=== PATIENT | male | born 1980 | race Caucasian/White ===

== ENCOUNTER 2020-08-17 17:52 | Emergency (ER) | payer OTHER, SELFPAY ==
--- NOTE | ~2020-08-17 | CT_ITS ---
EXAMINATION: CT abdomen pelvis wo con EXAM DATE: 08/17/2020 19:18 INDICATION: Right flank pain. TECHNIQUE: Spiral CT of the abdomen and pelvis was performed without contrast. Axial, coronal and sag ittal images were reviewed. The dose-length product (DLP) for this examination was 1053.34 mGy-cm. The exposure was tailored according to patient size (auto mA exposure control), and iterative reconst ruction (ASIR) was used as additional dose reduction technique. There is no prior study for comparis on. FINDINGS: There is a 3 mm stone in the right ureterovesicular junction with mild obstructive nephropa thy. No other genitourinary calcifications. The prostate is unremarkable. The bladder is unremarkab le. The liver, spleen, adrenal glands and pancreas are unremarkable. Gallbladder is unremarkable. No biliary obstruction. There is no retroperitoneal or pelvic lymphadenopathy. Small bilateral ing uinal fat-containing hernias. The appendix is normal. The stomach and small bowel are unremarkable. There is expected amount of c olonic stool. No free intraperitoneal gas. The heart is normal in size. There are no pericardial or pleural effusions. The lung bases are unremarkable. There is chronic bilateral L5 spondylolysis with moderate to severe disc disease and grade 2 anterolisthesis L5 on S1. IMPRESSION: 1. Right UVJ 3 mm stone, mild obstructive nephropathy. 2. Small inguinal hernias. Reviewed, dictated and finalized at location A.
--- NOTE | ~2020-08-17 | XR_ITS ---
EXAMINATION: XR abdomen/kub 1V EXAM DATE: 08/17/2020 19:20 INDICATION: Right UVJ 3 mm stone, mild obstructive nephropathy. TECHNIQUE: Frontal projection(s) of the abdomen for interpretation. Correlation is made to CT earlier same day. FINDINGS: Right distal ureteral stone identified, indicated on this exam. Appears to measure about 3- 4 mm on this x-ray. There are no osseous abnormalities identified. Nonobstructive bowel gas pattern. IMPRESSION: Right UVJ 3-4 mm stone. Reviewed, dictated and finalized at location A. IMPRESSION: Right UVJ 3-4 mm stone.
[2020-08-17 17:54] VITALS: BP 146/90; PULSE 102; RESP 20; TEMP 38.1; O2SAT 100
[2020-08-17 18:11] LABS: Basophils Absolute Auto 0.1 K/mm3 (0.0-0.1); Basophils Percent Auto 1.2 % (0.2-1.2); Eosinophils Absolute Auto 0.1 K/mm3 (0-0.3); Eosinophils Percent Auto 1.9 % (0-4.4); Hematocrit 40.5 % (42.0-52.0); Hemoglobin 13.3 g/dL (14.0-18.0); Immature Granulocyte Absolute 0.01 K/mm3 (0.00-0.031); Immature Granulocyte Percent A 0.2 % (0-0.5); Lymphocytes Absolute Auto 0.56 K/mm3 (0.9-3.2); Lymphocytes Percent Auto 13.3 % (18.3-44.2); Mean Corpuscular HGB Conc 32.8 g/dl (32-36); Mean Corpuscular Hemoglobin 27.9 pg (26-34); Mean Corpuscular Volume 85.1 fl (80-100); Mean Platelet Volume 10.8 fl (7.4-10.4); Monocytes Absolute Auto 0.6 K/mm3 (0.1-0.6); Monocytes Percent Auto 13.3 % (2.6-8.5); Neutrophils Absolute Auto 2.9 K/mm3 (1.3-6.7); Neutrophils Percent Auto 70.1 % (45.5-73.1); Platelet Count Result 154 k/mm3 (150-375); Red Blood Count 4.76 M/mm3 (4.6-6.20); Red Cell Distribution Width 13.2 % (11.5-14.5); White Blood Count 4.2 K/mm3 (4.5-10.0)
[2020-08-17 18:23] LABS: Alanine Aminotransferase 12 U/L (4-50); Albumin Level 4.4 g/dL (3.5-5.1); Alkaline Phosphatase 84 U/L (38-126); Anion Gap 11 mmol/L (8-16); Aspartate Amino Transferase 27 U/L (17-59); Bilirubin,Total 0.2 mg/dL (0.2-1.3); Blood Urea Nitrogen 14 mg/dL (9-20); Calcium 8.9 mg/dL (8.4-10.2); Carbon Dioxide 27 mmol/L (22-30); Chloride 101 mmol/L (98-107); Estimated Glomerular Filt Rate > 60; Glucose 145 mg/dL (75-110); Lipase 112 U/L (23-300); Potassium 3.7 mmol/L (3.4-5.0); Sodium 139 mmol/L (137-145)
[2020-08-17 18:34] LABS: Add Urine Microscopic? YES; Appearance Urine Clear (Clear); Bilirubin Urine Negative (Negative); Blood Urine 2+ (Negative); Color Urine Yellow (Yellow); Glucose Urine UA Negative (Negative); Ketones Urine Negative (Negative); Leukocyte Esterase Ur Negative LEU/UL (Negative); Mucus Urine Rare /lpf; Nitrate Urine Negative (Negative); Protein Urine Negative (Negative); Specific Grav Ur 1.014 (1.001-1.035); Urobilinogen Urine Negative mg/dL (<2.0)
--- NOTE | 2020-08-17 19:06 | ED.ABDPAIN ---
HPI - Abdominal Pain General Chief Complaint: Abdominal Pain Stated Complaint: Right flank pain Time Seen by Provider: 08/17/20 18:55 Source: patient Mode of arrival: ambulatory Limitations: no limitations History of Present Illness HPI narrative: This patient is a 40 year old male who presents for evaluation of right flank pain. He developed right lower back pain last night at 8 pm. He states he was unable to get comfortable so he could not sleep until 2 am. His pain has remained constant although it is better. He states his pain radiates around to his right lower abdomen. HE denies associated nausea, vomiting, fever or chills. He last took medication this morning for his pain. He rates his current pain 3/. MD elicited complaint: flank pain Onset (ago): day(s) (1) Pain Consistency: constant Location: R flank Migration to: RLQ Exacerbating factors: nothing Relieving factors: nothing Related Data Allergies Allergy/AdvReac Type Severity Reaction Status Date / Time No Known Allergies Allergy Verified 08/17/20 18:22 Review of Systems Review of Systems: All systems reviewed & are unremarkable except as noted in HPI and below Constitutional: Constitutional: Denies chills and Denies fever(s) Gastrointestinal: Gastrointestinal: Reports abdominal pain, Denies diarrhea, Denies nausea and Denies vomiting Genitourinary: Genitourinary: Denies hematuria and Denies oliguria Musculoskeletal: Musculoskeletal: Reports back pain Neurologic: Denies focal weakness, Denies numbness and Denies weakness PMFSH Past Medical History Medical History (Updated 08/18/20 @ 00:00 by Background Daemon) Chronic back pain Family History Family History (Updated 06/03/16 @ 23:19 by DOCTOR UNKNOWN) Father Family history of diabetes mellitus in first degree relative Social History Social History Alcohol intake: never Exam Const: General: alert Orientation/consciousness: patient oriented x3 HENMT: Head: normocephalic and atraumatic Ears: TM's normal bilaterally Face and sinus: face symmetric Mouth: Yes Normal oral and palatal mucosa present, Yes lip normal and Yes oropharynx normal Throat: posterior oropharynx normal, tonsils normal and uvula midline Eyes: EOM: EOMs intact bilaterally Chest: Chest palpation & inspection: normal inspection of the chest Resp: Effort & Inspection: normal respiratory effort and no retractions Auscultation: clear to auscultation bilaterally Cardio: Rate: regular rate Rhythm: regular rhythm Heart sounds: no murmurs GI: GI Palp: Yes Soft to palpation, No Tenderness to palpation present (GI), No Guarding due to palpation present (GI) and No Rigid due to palpation : General: Yes no CVA tenderness Skin: General skin exam: normal color Rashes: no rashes Neuro: General: patient oriented x3, moves all extremities and CN's II-XI intact bilaterally Course Reevaluation(s) Reevaluation #1: I have discussed with patient diagnosis of kidney stone and discharge plan. He declines any additional medication and he is ready for discharge. Date: 08/17/20 Time: 20:34 Vital Signs Vital signs: Vital Signs Temperature 100.5 F H 08/17/20 17:54 Pulse Rate 102 H 08/17/20 17:54 Respiratory Rate 08/17/20 17:54 Blood Pressure 146/90 H 08/17/20 17:54 Pulse Oximetry 100 08/17/20 17:54 Temperature 100.5 F H 08/17/20 17:54 Pulse Rate 102 H 08/17/20 17:54 Respiratory Rate 08/17/20 17:54 Blood Pressure 146/90 H 08/17/20 17:54 Pulse Oximetry 100 08/17/20 17:54 MDM - Abdominal Pain Lab Data Attestation: I reviewed the patient's lab results. Result diagrams: 08/17/20 18:05 08/17/20 18:05 Labs: Lab Results 08/17/20 08/17/20 08/17/20 Range/Units 18:05 18:05 18:18 WBC 4.2 L (4.5-10.0) K/mm3 RBC 4.76 (4.6-6.20) M/mm3 Hgb 13.3 L (14.0-18.0) g/dL Hct 40.5 L (42.0-52.0) % MCV 85.1 (80-100) fl MCH 27.9
[2020-08-17] MEDS: LACTATED RINGERS 1,000 ML 999 ML IV CONT (19:21)
[2020-08-17] MEDS: TAMSULOSIN HCL 0.4 MG CAPSULE PO (20:00)
== END 2020-08-17 20:58 | disposition home or self-care (01) ==
PROVIDERS: Emergency Medicine; Emergency Provider General Practice; PCP Family Medicine Adolescent Medicine
DX: N13.8 Other obstructive and reflux uropathy (principal); N20.1 Calculus of ureter; K40.90 Unilateral inguinal hernia, without obstruction or gangrene, not specified as recurrent
CPT/HCPCS: 36415; 74018; 74176; 80053; 81001; 83690; 85025; 96361; 96374; 99284; A9270; J0131; J7120

== ENCOUNTER 2023-02-03 08:03 | Outpatient (CLI) | payer BC, SELFPAY ==
[2023-02-03 12:15] LABS: Kit Draw Collected
== END 2023-02-03 08:04 | disposition home or self-care (01) ==
LOC: ANHGOSHLAB 08:04
PROVIDERS: PCP Internal Medicine; Visit Provider Clinical Nurse Specialist
DX: R73.9 Hyperglycemia, unspecified (principal); Z13.228 Encounter for screening for other metabolic disorders; Z13.220 Encounter for screening for lipoid disorders; F32.A Depression, unspecified
CPT/HCPCS: 36415

== ENCOUNTER 2023-10-28 13:12 | Emergency (ER) | payer BC, SELFPAY ==
[2023-10-28 13:26] VITALS: BP 135/92; PULSE 71; RESP 16; TEMP 36.3; O2SAT 100
--- NOTE | 2023-10-28 14:01 | ED.WOUNDLAC ---
HPI - Wound/Laceration General Chief Complaint: Wound/Laceration Stated Complaint: Injured Finger Time Seen by Provider: 10/28/23 13:57 Source: patient and RN notes reviewed Mode of arrival: ambulatory Limitations: no limitations History of Present Illness HPI narrative: Patient presents today with a laceration to his left 5th finger that he sustained while using a crowbar and hammer at home this prior to arrival. Denies numbness or tingling. He is not up-to-date on his tetanus vaccine. No [id number] treatment prior to arrival. Related Data Allergies Allergy/AdvReac Type Severity Reaction Status Date / Time No Known Allergies Allergy Verified 02/01/23 14:26 Review of Systems Review of Systems: CONSTITUTIONAL: Denies body aches, fever, chills, or sweats. EYES: Denies visual changes, redness, or discharge. ENT: Denies rhinorrhea, congestion, sore throat, or otalgia. CARDIOVASCULAR: Denies chest pain, palpitations, or edema. RESPIRATORY: Denies cough or dyspnea. GASTROINTESTINAL: Denies abdominal pain, nausea, vomiting, or diarrhea. GENITOURINARY: Denies dysuria or hematuria. SKIN: Denies rash, itching. + finger laceration MUSCULOSKELETAL: Denies back pain, joint pain, or myalgia. NEUROLOGIC: Denies headache, numbness, tingling, or weakness. PSYCH: Denies depression or anxiety. [facility] Past Medical History Medical History Chronic back pain History of kidney stones Surgical History Surgical History Hx of vasectomy Family History Family History Father Family history of diabetes mellitus in first degree relative Social History Social History Smoking status: Former smoker Tobacco type: cigarettes Second hand tobacco smoke exposure: No Smoking end date: 11/06/10 Alcohol intake: current Substance use: never Substance use type: does not use Lack of Transportation: No Lack of Food: Never True Current Housing: I Have Housing Concerned About Future Housing: No Difficulty Paying Gas/Electric Bills: No Difficulty Paying for Meds: No Currently Unemployed: No Education: Bachelor's Degree Difficulty w/ Childcare or Family Care: No Living arrangements: with family Additional living arrangements comments: Occupation/Education: occupation Gender identity (if verbalized by the patient): Male Sexual Orientation (if Verbalized by the Patient): Straight or Heterosexual Spiritual care concerns: No Agree to blood products: Yes Comments At time of signature, I have reviewed and agree with nursing past medical, surgical, social and family history unless otherwise noted. Please see nursing chart for further information. There is no relevant family history pertinent to the presenting complaint Exam Narrative: GENERAL: Well-appearing, well-nourished, and in no acute distress. HEAD: Normocephalic, atraumatic. EYES: EOMI. No redness or drainage. Conjunctivae normal. ENT: Mucous membranes pink and moist. NECK: Normal AROM. CHEST: No respiratory distress. EXTREMITIES: Normal range of motion. No edema. Left 5th finger: 1.5 cm full-thickness jagged laceration to the palmar aspect of the PIP and proximal phalanx. Distal sensation intact. Capillary refill normal. Full range of motion of the finger against resistance. SKIN: Warm, dry, no rash. Capillary refill normal. Normal skin turgor. NEURO: No focal deficits. Alert and oriented x3. Gait steady. PSYCH: Normal affect. No signs of depression or anxiety. Course Course Level of Care: Express Care Visit Vital Signs Vital signs: Vital Signs Temperature 97.3 F L 10/28/23 13:26 Pulse Rate 71 10/28/23 13:26 Respiratory Rate 16 10/28/23 13:26 Blood Pressure
[2023-10-28] MEDS: TETANUS,DIPHTHERIA,AC PERTUSSIS ADULT (0.5 ML) BOOSTRIX IM (14:10)
== END 2023-10-28 14:46 | disposition home or self-care (01) ==
PROVIDERS: Emergency Provider Nurse Practitioner; PCP Clinical Nurse Specialist
DX: S61.217A Laceration without foreign body of left little finger without damage to nail, initial encounter (principal); X58.XXXA Exposure to other specified factors, initial encounter; Z87.891 Personal history of nicotine dependence; Z98.52 Vasectomy status
CPT/HCPCS: 12001; 90471; 90715; 99212; 99213; G0463

== ENCOUNTER 2024-08-09 09:08 | Outpatient (CLI) | payer BC, SELFPAY ==
--- NOTE | ~2024-08-09 | XR_ITS ---
EXAMINATION: XR abdomen/kub 1V DATE: 08/09/2024 09:21 INDICATION: Left kidney stone. TECHNIQUE: A supine view of the abdomen on 2 radiographs was obtained. COMPARISON: Abdomen radiographs 08/17/2020 FINDINGS: There are no dilated loops of bowel. There is a phlebolith in right pelvis. IMPRESSION: 1. No visible urolithiasis. Reviewed, dictated and finalized at location A. IMPRESSION: 1. No visible urolithiasis.
== END 2024-08-09 09:09 | disposition home or self-care (01) ==
PROVIDERS: PCP Clinical Nurse Specialist; Visit Provider Clinical Nurse Specialist
DX: N20.0 Calculus of kidney (principal)
CPT/HCPCS: 74018

== ENCOUNTER 2025-05-15 13:50 | Outpatient (CLI) | payer BC, SELFPAY ==
--- NOTE | ~2025-05-15 | XR_ITS ---
Lumbosacral Spine: AP and lateral views Clinical History: Pain Findings: The normal lordotic curve is maintained. Bilateral L5 pars interarticularis defects are pre sent, with 15 mm anterolisthesis of L5 over S1. There is severe degenerative disc narrowing at L5-S1. Remaining disc spaces are preserved. The sacroiliac joints are normally outlined. Impression: Bilateral L5 pars interarticularis defects with 15 mm anterolisthesis of L5 over S1. Severe degenerative disc narrowing at L5-S1. Reviewed, dictated and finalized at location . Impression: Bilateral L5 pars interarticularis defects with 15 mm anterolisthesis of L5 ove r S1. Severe degenerative disc narrowing at L5-S1.
== END 2025-05-15 13:51 | disposition home or self-care (01) ==
LOC: GOSHIMG 13:51
PROVIDERS: PCP Clinical Nurse Specialist; Visit Provider Clinical Nurse Specialist
DX: M43.16 Spondylolisthesis, lumbar region (principal); M43.17 Spondylolisthesis, lumbosacral region; M51.379 Other intervertebral disc degeneration, lumbosacral region without mention of lumbar back pain or lower extremity pain; M51.370 Other intervertebral disc degeneration, lumbosacral region with discogenic back pain only
CPT/HCPCS: 72100

== ENCOUNTER 2025-06-04 08:46 | Outpatient (CLI) | payer BC, SELFPAY ==
--- OUTSIDE RECORDS SUMMARY | 2025-06-04 08:59 | XMS_ITS | Referral Summary ---
Author Organization [facility] Building [address] Address [address] [place] [address] Care Team Providers Care Clinic Coordinator Name Role Phone Sebastian Glasgow MD Primary Care Prov ider Allergies No known active allergies Medications acetaminophen (TYLENOL) 500 mg tablet Take 500 mg by mouth as needed for pain or headaches. Active ibuprofen (ibuprofen) 200 mg tab/cap Take 200 mg by mouth as needed for pain. Active sildenafil (VIAGRA) 25 mg tablet Take 25 mg by mouth as needed for erectile dysfunction. Active pantoprazole DR (PROTONIX) 40 mg EC tabletIndicatio ns:Treatment of Non-Bleeding Gastric Disorder Take 1 tablet (40 mg total) by mouth daily. 30 tablet 11/06/2018 Active ondansetron (ZOFRAN) 4 mg tablet Take 1 tablet (4 mg total) by mouth every 6 (six) hours. 12 tablet 11/06/2018 Active Active Problems Problem Noted Date Diagnosed Date Pain of left thumb 12/12/2017 Lateral epicondylitis of left elbow 08/04/2017 Lumbago 02/16/2012 Spondylolisthesis 02/16/2012 Pain in extremity 02/16/2012 Social History Tobacco Use Types Packs/Day Years Used Date Smoking Tobacco: Former Smokeless Tobacco: Never Alcohol Use Standard Drinks/Week Comments Yes 0 (1 standard drink = 0.6 oz pure alcohol) ~1 glass of wine every other day Personal Safety Answer Date Recorded Getting School Help Needed Not on file 01/19 Sex and Gender Information Value Date Recorded Sex Assigned at Not on file 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 Gender Identity Not on file Sexual Orientation Not on file Last Filed Vital Signs Vital Sign Reading Time Taken Comments Blood Pressure 138/88 11/06/2018 1:30 PM HAMMERER HELPER Pulse 83 11/06/2018 1:30 PM HAMMERER HELPER Temperature 37.1 C (98.7 F) 11/06/2018 12:09 PM HAMMERER HELPER Respiratory Rate 16 11/06/2018 1:30 PM HAMMERER HELPER Oxygen Saturation 99% 11/06/2018 12:30 PM HAMMERER HELPER Inhaled Oxygen Concentration - - Weight 93 kg (205 lb) 11/06/2018 12:09 PM HAMMERER HELPER Height 177.8 cm (5' 10) 11/06/2018 12:09 PM HAMMERER HELPER Body Mass Index 29.41 11/06/2018 12:09 PM HAMMERER HELPER Plan of Treatment Not on file [place] [id number] [facility] CMR Care Teams Clinic Coordinator Relationship Specialty Start Date End Date Sebastian Glasgow MD [address] [place] [address] PCP - General 03/03/17
--- OUTSIDE RECORDS SUMMARY | 2025-06-04 08:59 | XMS_ITS | Clinical Summary ---
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 Gender Identity Not on file Sexual Orientation Not on file Obstetrics History Last Filed Vital Signs Vital Sign Reading Time Taken Comments Blood Pressure 138/88 11/06/2018 1:30 PM POWER ORIGINATOR Pulse 83 11/06/2018 1:30 PM POWER ORIGINATOR Temperature 37.1 C (98.7 F) 11/06/2018 12:09 PM POWER ORIGINATOR Respiratory Rate 16 11/06/2018 1:30 PM POWER ORIGINATOR Oxygen Saturation 99% 11/06/2018 12:30 PM POWER ORIGINATOR Inhaled Oxygen Concentration - - Weight 93 kg (205 lb) 11/06/2018 12:09 PM POWER ORIGINATOR Height 177.8 cm (5' 10) 11/06/2018 12:09 PM POWER ORIGINATOR Body Mass Index 29.41 11/06/2018 12:09 PM POWER ORIGINATOR Plan of Treatment Not on file Insurance [employer] SIG [id number] [facility] CMR Care Teams International Organizer Relationship Specialty Start Date End Date Sebastian Glasgow MD [address] [place] [address] PCP - General 03/03/17
--- OUTSIDE RECORDS SUMMARY | 2025-06-04 08:59 | XMS_ITS | Clinical Summary ---
Author Organization [facility] [employer] Address [address] [place] [address] Care Team Providers Care Metal Reclamation Kettle Tender Name Role Phone Unknown, Provider Primary Care Provider Unavaila ble Source Comments [facility] [employer],non-owned Affiliates and Associated Physician Practices is amultiple site organization consisting of ambulatory clinics and hospital sitesin [place], [place], [place] and [place]. This disclosure is being madepursuant to the Care Everywhere program and may not contain all information available regarding this patient. Last updated 18.Dr. Tariff [employer] Allergies No known active allergies Medications * Be aware that medications may not be up to date on this document. Alwaysverify current medications with the patient. No known medications Active Problems No known active problems Immunizations Immunization Administration Dates Next Due FLU VACCINE QUAD IIV4 PF ID 11/02/2016 INFLUENZA VACCINE, QUADR. 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 Gender Identity Not on file Sexual Orientation Not on file Plan of Treatment Health Maintenance Due Date Last Done Comments COLOGUARD (AGES 45-75) - COL ON CA SCREENING 1978 COLON MONITORING 1978 COLONOSCOPY - COLON CA SCREENING 1978 CT COLONOGRAPHY - COLON CA SCREENING 1978 Colorectal Cancer Screening 1978 FIT - COLON CA SCREENING 1978 FLEX SIG - COLON CA SCREENING 1978 LIPID TESTING 1978 HIV SCREENING 1993 HEPATITIS C SCREENING 08/03/1996 DTAP/TDAP/TD VACCINES (1 - Tdap) 1997 HEPATITIS B VACCINE (1 of 3 - 19+ 3-dose series) 1997 COVID-19 VACCINE (1 2023-2 5 season) 2024 DEPRESSION SCREENING 11/06/2024 INFLUENZA VACCINE (#1) 2025 8, 11/02/2016 ZOSTER VACCINE (1 of 2) 2028 HIB VACCINE Aged Out No longer eligi ble based on patient's age to complete this topic HPV VACCINE Aged Out No longer eligi ble based on patient's age to complete this topic MENINGOCOCCAL (Group B) VACCINE SHARED DECISION-MAKING Aged Out No longer eligible based on patient's age to complete this topic MENINGOCOCCAL GROUPS A/C/Y/W VACCINE Aged Out No longer eligible b ased on patient's age to complete this topic PNEUMOCOCCAL VACCINE Aged Out No long er eligible based on patient's age to complete this topic Insurance [facility] Care Teams Metal Reclamation Kettle Tender Relationship Specialty Start Date End Date Unknown, Provider PCP - General 11/02/16
--- OUTSIDE RECORDS SUMMARY | 2025-06-04 08:59 | XMS_ITS | Encounter Summary ---
Author Organization [employer] Address 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
--- OUTSIDE RECORDS SUMMARY | 2025-06-04 08:59 | XMS_ITS | Clinical Summary ---
Author Organization [facility] Address [address] [place]: Epic Prelude ADT [place] [address] Care Team Providers Care Level Vial Grinder Name Role Phone Unavailable Primary Care Provider Unavailabl e Allergies No known active allergies Medications ibuprofen (MOTRIN) 200 mg tablet Take 200 mg by mouth. 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 Gender Identity Not on file Sexual Orientation Not on file Last Filed Vital Signs Vital Sign Reading Time Taken Comments Blood Pressure 130/80 07/18/2020 3:25 PM CDT Pulse 91 07/18/2020 3:25 PM CDT Temperature 36.7 C (98.1 F) 07/18/2020 3:25 PM CDT Respiratory Rate 18 07/18/2020 3:25 PM CDT Oxygen Saturation - - Inhaled Oxygen Concentration - - Weight 95.3 kg (210 lb) 07/18/2020 3:25 PM CDT Height 177.8 cm (5' 10) 07/18/2020 3:25 PM CDT Body Mass Index 30.13 07/18/2020 3:25 PM CDT Plan of Treatment Health Maintenance Due Date Last Done Comments HEPATITIS B VACCINES (1 of 3 - 19+ 3-dose series) 1997 DTAP/TDAP/TD VACCINES (1 - Tdap) 07/19/2020 07/18/20 20 COLORECTAL SCREENING 2023 Colorectal Cancer Screening 2023 FIT-DNA Q 3 years 2023 FIT/FOBT Q 1 year 2023 Flex Sig/CT Colonography Q 5 years 2023 INFLUENZA VACCINE (#1) 2025 HPV VACCINES Aged Out No longer eligi ble based on patient's age to complete this topic
--- OUTSIDE RECORDS SUMMARY | 2025-06-04 08:59 | XMS_ITS | Clinical Summary ---
Author Organization [facility] Address [address] [place] [id number] Care Team Providers Care Weed Cooking Operator Name Role Phone Sebastian Glasgow MD Primary Care Provider [phone]- [phone] Social History Tobacco Use Types Packs/Day Years Used Date Smoking Tobacco: Never Assessed Sex and Gender Information Value Date Recorded Sex Assigned at Not on file Legal Sex Male 6:27 AM CDT Gender Identity Not on file Sexual Orientation Not on file Plan of Treatment Health Maintenance Due Date Last Done Comments Colorectal Cancer Screening Colonoscopy (10 Years) 1978 Annual Physical 1981 Hepatitis C 1996 DTaP, Tdap and Td Vaccines ( 1 - Tdap) 1997 Hepatitis B Vaccines (1 of 3 - 19+ 3-dose series) 1997 COVID-19 Vaccine (2023-2 5 season) 2024 Meningococcal B Vaccine Aged Out No l onger eligible based on patient's age to complete this topic Meningococcal Vaccine Aged Out No shahzad pedro luis eligible based on patient's age to complete this topic Pneumococcal Vaccine: Pediat rics (0 to 5 Years) and At-Risk Patients (6 to 49 Years) Aged Out No longer eligible b ased on patient's age to complete this topic RSV Immunizations Under 20 Months Aged Out No longer eligible based on patient's age to complete this topic Insurance [employer] Care Teams Weed Cooking Operator Relationship Specialty Start Date End Date Sebastian Glasgow MD [address] [address] PCP - General FAMILY PRACTICE 04/03/18
[2025-06-18 18:27] VITALS: BMI 31.5
--- NOTE | 2025-06-18 18:27 | WPDHOMESLEEP ---
Sleep Study - Home Unattended Date of Study: 06/04/25 Ordering Provider: ADRYAN Yousif-James Interpreting Provider: Yesi Murphy DO Home Sleep Study Type: Watch PAT Height: 1.78 m Weight: 99.79 kg Body Mass Index: 31.5 Neck Circumference (inches): 16.75 [place]: 0 Reason for Sleep Study snoring Sleep History The patient is a 44-year-old male who had a sleep study ordered by his primary care for evaluation of sleep apnea. The patient admits to snoring loudly. He does have interruptions in breathing while asleep. He does choke or gasp at night. He does have trouble breathing on his back. He does have morning headaches. He denies having a dry or sore mouth/throat in the morning. He denies nocturnal heartburn. He denies nocturia. He denies having difficulty falling or staying asleep. He denies having difficulty returning to sleep if he wakes up throughout the night. He denies hypnotic or sedative use. He denies feeling anxious about sleep. He goes to bed at 8 p.m. on workdays and at 9 p.m. on his days off. It takes him 15 minutes to fall asleep. He gets 7 hours of sleep per night. His sleep is not restorative on his days off. He denies taking any planned naps. [facility] Past Medical History Medical History Hematuria Encounter to establish care History of kidney stones Chronic back pain Surgical History Surgical History Hx of vasectomy Family History Family History Father Family history of diabetes mellitus in first degree relative Social History Social History Smoking status: Former smoker Tobacco type: cigarettes Second hand tobacco smoke exposure: No Smoking end date: 11/06/10 Alcohol intake: current Substance use: never Substance use type: does not use Lack of Transportation: No Lack of Food: Never True Current Housing: I Have Housing Concerned About Future Housing: No Difficulty Paying Gas/Electric Bills: No Difficulty Paying for Meds: No Currently Unemployed: No Education: Bachelor's Degree Difficulty w/ Childcare or Family Care: No Living arrangements: with family Additional living arrangements comments: Occupation/Education: occupation Gender identity (if verbalized by the patient): Male Sexual Orientation (if Verbalized by the Patient): Straight or Heterosexual Spiritual care concerns: No Agree to blood products: Yes Medications Home Medications ?Medication ?Instructions ?Recorded ?Confirmed ?Type escitalopram oxalate 10 mg tablet 20 mg (2 x 10 mg) PO DAILY #180 04/09/25 05/15/25 Rx (Lexapro) tabs semaglutide (weight loss) 0.25 0.25 mg (0.5 mL) subcut WEEKLY #2 05/27/25 Rx mg/0.5 mL subcutaneous pen mL injector (Wegovy) Sleep Procedure The sleep study was completed using [employer]eking[employer] a technically adequate device with seven channels: peripheral arterial tone, actigraphy, body position, snore, respiratory movement, pulse oximetry, sleep staging, and heart rate. Prior to using the device, the patient received verbal and written instructions for its application and was provided with the help desk phone number for additional telephonic instruction with 24-hour availability of qualified personnel to answer questions. The study was scored using CMS guidelines. Sleep Architecture The total recording time is 7 hrs, 54 min. The total sleep time is 7 hrs, 19 min. Sleep latency is 14 minutes. REM latency is 137 minutes. The patient had 6 episodes of waking. Sleep architecture shows 24.3% deep sleep, 45.3% light sleep, and (as % Total Sleep Time) showed NREM (Light 45.3%; Deep 24.3%), and a 30.4% stage REM. The patient spent 86.2% of total sleep time in the supine position. Sleep efficiency was 92.62. Respiratory Analysis The overall AHI (pAHI 4%:) is 17.0. The overall AHI (pAHI 3%:) is 23.4. The central AHI is 1.0. The AHI was 26.1 in NREM and 17.2 in REM sleep. The AHI was 25.7 in Supine and 9.0 in Non-supine sleep. Percent of Kenneth Lynch respirations is 0.0. Oximetry Data The oxygen desaturation index (ANGIE 4%:) is 15.1. The mean saturation is 93%, and the lowest saturation is 82%. Time spent with saturation < 88% is 8.2 minutes. Snoring Profile Snoring average intensity is 42 dB. The patient snored above 45 decibels for 61.8 minutes, 14.1% of sleep time. Cardiac Profile The average pulse rate is 86 beats per minutes. The lowest pulse rate is 61 bpm. The highest pulse rate reported is 114 bpm. Atrial fibrillation was not detected. Premature beats occur <0.1 per minute. Assessment and Plan Assessment and Plan (1) SUBHASH (obstructive sleep apnea): Code(s): G47.33 - Obstructive sleep apnea (adult) (pediatric) Status: Acute Assessment and Plan: The patient had an overall AHI of 17.0 with desaturation down to 82%. This is consistent with moderate sleep apnea. I recommend that the patient be prescribed AutoPAP 5-15 cm H2O, CPAP mask/filters/tubing and heated humidity. A mandibular advancement device is also an acceptable treatment option. This should be used with all episodes of sleep.? Compliance should be reviewed within 31-90 days of starting therapy for usage greater than 4 hours per night greater than 70% of the nights. The patient should be asked about symptoms such as?excessive daytime sleepiness, quality of sleep, decreased nocturia, increased?mental functioning such as memory, mood, and concentration. Data The data obtained during this sleep study is adequate for interpretation. Certification This sleep study has been reviewed by a board certified sleep medicine physician.
== END 2025-06-11 13:51 | disposition home or self-care (01) ==
LOC: ANHCSM 08:50
PROVIDERS: PCP Clinical Nurse Specialist; Visit Provider Clinical Nurse Specialist
DX: G47.10 Hypersomnia, unspecified (principal); G47.33 Obstructive sleep apnea (adult) (pediatric)
CPT/HCPCS: 95800

== ENCOUNTER 2025-07-31 00:08 | Day surgery (SDC) | payer BC, SELFPAY ==
[2025-07-18 12:39] VITALS: BMI 27.9
[2025-07-31 06:30] VITALS: BP 137/89; PULSE 80; RESP 20; TEMP 35.9; O2SAT 98; BMI 30.4
[2025-07-31] MEDS: LACTATED RINGERS 1,000 ML 150 ML IV CONT (06:47)
--- NOTE | 2025-07-31 07:01 | WPDANESEPPF ---
Anes - Initial Pre Proc Eval Procedure: Operation Date: 07/31/25 08:00 Proposed Procedures p Screening Colonoscopy - Harvey Nathan MD Date/Time: 07/31/25 07:01 Surgeon: Harvey Nathan MD Pre Op Diagnosis: Screening Patient Data Age: 44 Gender: M Height: 1.8 m Weight: 99.1 kg Last Vital Signs Temp 96.6 F L 07/31/25 06:30 Pulse 80 07/31/25 06:30 Resp 20 07/31/25 06:30 BP 137/89 07/31/25 06:30 Pulse Ox 98 07/31/25 06:30 O2 Del Method Room Air 07/31/25 06:30 Allergies Allergy/AdvReac Type Severity Reaction Status Date / Time No Known Allergies Allergy Verified 07/31/25 06:35 Home Medications ?Medication ?Instructions ?Recorded ?Confirmed ?Type semaglutide (weight loss) 0.25 0.25 mg (0.5 mL) subcut WEEKLY #2 05/27/25 07/18/25 Rx mg/0.5 mL subcutaneous pen mL injector (WegovZeer) Held on 07/18/25. Instructions: start after colonoscopy CPAP #1 ea 06/20/25 Rx escitalopram oxalate 10 mg tablet 20 mg (2 x 10 mg) PO DAILY #180 07/15/25 07/31/25 Rx (Lexapro) tabs Patient hx anesthesia problems: none Family hx anesthesia problems: none Results Review: All pre-operative results and documents have been reviewed as part of the pre-operative evaluation. [facility] Past Medical History Medical History Hematuria Encounter to establish care History of kidney stones Chronic back pain Surgical History Surgical History Hx of vasectomy Family History Family History Father Family history of diabetes mellitus in first degree relative Social History Social History Smoking status: Former smoker Tobacco type: cigarettes Second hand tobacco smoke exposure: No Smoking end date: 11/06/10 Alcohol intake: current Substance use: never Substance use type: does not use Lack of Transportation: No Lack of Food: Never True Current Housing: I Have Housing Concerned About Future Housing: No Difficulty Paying Gas/Electric Bills: No Difficulty Paying for Meds: No Currently Unemployed: No Education: Bachelor's Degree Difficulty w/ Childcare or Family Care: No Living arrangements: with family Additional living arrangements comments: Occupation/Education: occupation Gender identity (if verbalized by the patient): Male Sexual Orientation (if Verbalized by the Patient): Straight or Heterosexual Spiritual care concerns: No Agree to blood products: Yes Anes - Eval Final PreProcedure Day of Procedure 07/31/25 07:01 Patient weight: obese Lungs: normal air movement Airway: Mallampati scale class II Last oral intake: >/= 8 hours ASA classification: II Emergent: no Anesthetic plan: proceed Anesthesia type and monitoring: general GIVS and standard monitoring Results Review: All pre-operative results and documents have been reviewed as part of the pre-operative evaluation. BMI 30, SUBHASH but mild so no CPAP. Informed Consent: The patient's anesthetic plan and its attendant risks and benefits were discussed with the patient/family/POA. Questions were solicited and answers provided to the satisfaction of the patient/family/POA.
--- NOTE | 2025-07-31 07:24 | PM.HPGS ---
History of Present Illness History of Present Illness Consent: Risks, benefits, and alternatives have been discussed and questions answered. Patient agrees to proceed with procedure. Chief complaint: Screening Narrative: Lyle Adrian is a 44 year old male here for screening colonoscopy, had one about 20 years ago Review of Systems Review of Systems: All systems reviewed & are unremarkable except as noted in HPI and below PMFSH Past Medical History Medical History Hematuria Encounter to establish care History of kidney stones Chronic back pain Surgical History Surgical History Hx of vasectomy Family History Family History Father Family history of diabetes mellitus in first degree relative Social History Social History Smoking status: Former smoker Tobacco type: cigarettes Second hand tobacco smoke exposure: No Smoking end date: 11/06/10 Alcohol intake: current Substance use: never Substance use type: does not use Lack of Transportation: No Lack of Food: Never True Current Housing: I Have Housing Concerned About Future Housing: No Difficulty Paying Gas/Electric Bills: No Difficulty Paying for Meds: No Currently Unemployed: No Education: Bachelor's Degree Difficulty w/ Childcare or Family Care: No Living arrangements: with family Additional living arrangements comments: Occupation/Education: occupation Gender identity (if verbalized by the patient): Male Sexual Orientation (if Verbalized by the Patient): Straight or Heterosexual Spiritual care concerns: No Agree to blood products: Yes Meds Home Medications and Allergies Home Medications ?Medication ?Instructions ?Recorded ?Confirmed ?Type semaglutide (weight loss) 0.25 0.25 mg (0.5 mL) subcut WEEKLY #2 05/27/25 07/18/25 Rx mg/0.5 mL subcutaneous pen mL injector (Pinevent) Held on 07/18/25. Instructions: start after colonoscopy CPAP #1 ea 06/20/25 Rx escitalopram oxalate 10 mg tablet 20 mg (2 x 10 mg) PO DAILY #180 07/15/25 07/31/25 Rx (Lexapro) tabs Allergies Allergy/AdvReac Type Severity Reaction Status Date / Time No Known Allergies Allergy Verified 07/31/25 06:35 Vital Signs Vital Signs - 24 hr 07/31/25 06:30 Temperature 96.6 F L Pulse Rate 80 Respiratory Rate 20 Blood Pressure 137/89 Pulse Oximetry 98 Oxygen Delivery Room Air Exam Const: General: comfortable and no acute distress HENMT: Face/Nose/Sinus: Normal nares present Eyes: General: appearance normal, both eyes and all related structures Neck: Neck: no JVD Resp: Auscultation: clear to auscultation bilaterally Cardio: Rate: regular rate Rhythm: regular rhythm GI: Inspection: non-distended GI Palp: Yes Soft to palpation Skin: General skin exam: normal color Neuro: General: gait normal Speech: normal speech Extrem: General: normal to inspection Psych: Mental Status: mental status grossly normal Assessment and Plan Assessment and plan (1) Screening for colon cancer: Code(s): Z12.11 - Encounter for screening for malignant neoplasm of colon Status: Acute Assessment and Plan: colonoscopy
--- NOTE | 2025-07-31 07:50 | S_PTH ---
PATIENT: Lyle Adrian LOC: [facility]#:[id number] AGE/SX: 44/M ROOM: RE07/31/[address]: Harvey Nathan MD : 1980 BED: DIS: 07/31/2025 SPEC #: [id number] RECD: 07/31/25 10:15 STATUS: TAURUS REQ #: [id number] MIGDALIA: 07/31/25 07:[address]: Harvey Nathan DEPT: [facility] Surgical RECD BY: Bailey Boyer ENTERED: 07/31/25 10:15 SP TYPE: Surgical OTHR DR: Anamaria Gonzales, MARTA Tissues: A - Colon Polypectomy Procedures: Hematoxylin and Eosin Stain Gross and Microscopic Level 4
[2025-07-31 07:55] VITALS: BP 113/91; PULSE 76; RESP 16; O2SAT 98
[2025-07-31 08:05] VITALS: BP 110/63; PULSE 72; RESP 18; O2SAT 99
[2025-07-31 08:15] VITALS: BP 116/76; PULSE 74; RESP 18; O2SAT 99
== END 2025-07-31 08:20 | disposition home or self-care (01) ==
PROVIDERS: PCP Clinical Nurse Specialist; Referring Provider Clinical Nurse Specialist; Visit Provider Internal Medicine Gastroenterology
PROC: 0DJD8ZZ Inspection of Lower Intestinal Tract, Via Natural or Artificial Opening Endoscopic (ICD-10-PCS; CPT 45378; principal; 2025-07-31 08:00)
DX: Z12.11 Encounter for screening for malignant neoplasm of colon (principal); D12.0 Benign neoplasm of cecum; K64.8 Other hemorrhoids; G47.33 Obstructive sleep apnea (adult) (pediatric); G89.29 Other chronic pain; M54.9 Dorsalgia, unspecified; E66.9 Obesity, unspecified; Z68.30 Body mass index [BMI] 30.0-30.9, adult; Z79.85 Long-term (current) use of injectable non-insulin antidiabetic drugs; Z99.89 Dependence on other enabling machines and devices; Z98.890 Other specified postprocedural states; Z87.442 Personal history of urinary calculi; Z87.891 Personal history of nicotine dependence
CPT/HCPCS: 45385; 88305; J2003; J2704; J7120